=== PATIENT | female | born 1945 | race Asian ===

== ENCOUNTER → 2023-11-26 07:12 | Outpatient (REF) | payer MEDICARE, BC, SELFPAY | LOC: HWWDC 07:12 | PROVIDERS: ATTENDING PHYSICIAN Internal Medicine Geriatric Medicine | DX: Z12.31 Encounter for screening mammogram for malignant neoplasm of breast (principal) | CPT/HCPCS: 77063; 77067 ==

== ENCOUNTER → 2024-05-17 08:05 | Outpatient (REF) | payer MEDICARE, BC, SELFPAY | LOC: HWRAD 08:05 | PROVIDERS: ATTENDING PHYSICIAN Internal Medicine Geriatric Medicine | DX: Z13.820 Encounter for screening for osteoporosis (principal); Z78.0 Asymptomatic menopausal state | CPT/HCPCS: 77080 ==

== ENCOUNTER → 2024-07-07 08:20 | Outpatient (REF) | payer MEDICARE, BC, SELFPAY | LOC: HWRAD 08:20 | PROVIDERS: ATTENDING PHYSICIAN Internal Medicine Critical Care Medicine; FAMILY PHYSICIAN Internal Medicine Geriatric Medicine | DX: J98.4 Other disorders of lung (principal); R06.89 Other abnormalities of breathing; R91.8 Other nonspecific abnormal finding of lung field | CPT/HCPCS: 71250 ==